=== PATIENT | male | born 1960 | race Caucasian/White ===

== ENCOUNTER 2023-05-18 20:02 | Emergency (ER) | payer OTHER ==
[2023-05-18] MEDS: Clindamycin HCl 150 MG Cap PO ONE (20:25)
== END 2023-05-18 20:32 | disposition home or self-care (01) ==
LOC: VM.ED 20:02
DX: K02.9 Dental caries, unspecified (principal)
CPT/HCPCS: 99282; 99283; A9270-GY

== ENCOUNTER 2024-10-18 18:17 | Emergency (ER) | payer OTHER ==
[2024-10-18 18:34] LABS: BASOPHILS PERCENT AUTO 0.1 % (0.2-1.2); EOSINOPHILS ABSOLUTE AUTO 0.2 x10^3/uL (0.0-0.5); EOSINOPHILS PERCENT AUTO 1.6 % (0.0-4.0); HEMATOCRIT 40.5 % (40.0-52.0); HEMOGLOBIN 14.5 g/dL (14.0-18.0); IMMATURE GRAN ABSOLUTE AUTO 0.01 x10^3/uL (0.00-0.07); LYMPHOCYTES ABSOLUTE AUTO 1.8 x10^3/uL (1.0-4.8); LYMPHOCYTES PERCENT AUTO 17.9 % (25.0-50.0); MEAN CORPUSCULAR HEMOGLOBIN 31.3 pg (26.0-32.0); MEAN CORPUSCULAR HGB CONC 35.8 g/dL (32.0-36.0); MEAN CORPUSCULAR VOLUME 87.5 fL (78.0-93.0); MONOCYTES ABSOLUTE AUTO 0.7 x10^3/uL (0.0-0.8); MONOCYTES PERCENT AUTO 6.4 % (2.0-11.0); NEUTROPHILS ABSOLUTE AUTO 7.6 x10^3/uL (1.8-7.7); NEUTROPHILS PERCENT AUTO 73.9 % (50.0-80.0); PLATELET COUNT,PLT 222 x10^3/uL (130-400); RED BLOOD CELL COUNT 4.63 x10^6/uL (4.5-6.0); WHITE BLOOD CELL COUNT,WBC 10.2 x10^3/uL (4.0-10.0)
[2024-10-18] MEDS: Lactated Ringers 1,000 ML IV ONE (18:51)
[2024-10-18 18:52] LABS: ALANINE AMINOTRANSFERASE,ALT 31 U/L (16-63); ALBUMIN 3.6 g/dL (3.4-5.0); ALKALINE PHOSPHATASE 54 U/L (46-116); ASPARTATE AMNIOTRANSFERASE,AST 16 U/L (15-37); BILIRUBIN TOTAL 0.5 mg/dL (0.2-1.0); BLOOD UREA NITROGEN,BUN 17 mg/dL (7-18); CALCIUM 9.3 mg/dL (8.5-10.1); CARBON DIOXIDE,CO2 28 mmol/L (21-32); CHLORIDE,CL 102 mmol/L (98-107); CREATINE KINASE,CK 106 U/L (39-308); GLUCOSE RANDOM 139 mg/dL (70-99); POTASSIUM,K 3.9 mmol/L (3.5-5.1); PROTEIN TOTAL,TP 7.2 g/dL (6.4-8.2); SODIUM,NA 140 mmol/L (136-145)
[2024-10-18 18:55] LABS: ANION GAP 13.9 mmol/L (5-15); ESTIMATED GFR 86 mL/min (>=60)
== END 2024-10-18 19:50 | disposition home or self-care (01) ==
LOC: VM.ED 18:17
DX: E86.0 Dehydration (principal)
CPT/HCPCS: 36415; 80053; 82550; 84484; 85025; 96360; 99284; 99284-25; J7120

== ENCOUNTER 2025-03-09 17:20 | Emergency (ER) | payer OTHER ==
[2025-03-09] MEDS: Diphtheria,Pertussis(Acell),Tetanus Vaccine 0.5 ML Syringe IM ONE (18:06)
[2025-03-09] MEDS: Amoxicillin/Clavulanate K 875-125 MG Tab PO ONE (18:06)
[2025-03-09] MEDS: Take Home: Acetaminophen/HYDROcodone 325-5 MG, 5 Tab Pack PO ONE (18:06)
== END 2025-03-09 18:15 | disposition home or self-care (01) ==
LOC: VM.ED 17:20
DX: S82.832A Other fracture of upper and lower end of left fibula, initial encounter for closed fracture (principal); Z79.899 Other long term (current) drug therapy; Z23 Encounter for immunization; W20.8XXA Other cause of strike by thrown, projected or falling object, initial encounter; Y93.89 Activity, other specified
CPT/HCPCS: 90471; 90715; 99283; A9270; 73590-LT; 73610-LT

== ENCOUNTER 2025-04-30 08:43 | Day surgery (SDC) | payer OTHER ==
[2025-04-30] MEDS: Lactated Ringers 1,000 ML IV SCH (09:01)
[2025-04-30] MEDS ORDERED: fentaNYL 100 MCG/2 ML SDV ONE (09:07)
[2025-04-30] MEDS ORDERED: Propofol 200 MG/20 ML SDV ONE (09:07)
== END 2025-04-30 11:11 | disposition home or self-care (01) ==
LOC: VM.SDS 08:43 → MERGE 10:00 → VM.SDS 11:11
PROVIDERS: ATTEND Surgery
DX: Z12.11 Encounter for screening for malignant neoplasm of colon (principal); I25.10 Atherosclerotic heart disease of native coronary artery without angina pectoris; I50.9 Heart failure, unspecified; E11.9 Type 2 diabetes mellitus without complications; Z79.899 Other long term (current) drug therapy
CPT/HCPCS: 00812; 45378; J2704; J3010; J7120

== ENCOUNTER 2025-08-09 13:32 | Emergency (ER) | payer OTHER | END 2025-08-09 15:23 | disposition home or self-care (01) | LOC: VM.ED 13:32 | DX: S42.032A Displaced fracture of lateral end of left clavicle, initial encounter for closed fracture (principal); V68.5XXA Driver of heavy transport vehicle injured in noncollision transport accident in traffic accident, initial encounter; Y93.89 Activity, other specified | CPT/HCPCS: 73000-LT; 99283 ==